=== PATIENT | female | born 1950 | race Caucasian/White ===

== ENCOUNTER 2019-06-23 17:47 | Inpatient (IN) | payer BC ==
[~2019-06-23] VITALS: Ht 157.5 cm; Wt 80.7 kg
[2019-06-23 17:47] VITALS: BP_SYST 166
--- NOTE | 2019-06-23 17:47 | NUR ---
Note bernabe in ED - 06/23/19 at 1812 by JENNIFER Placed in room 3 . Placed on school bus monitor, blood pressure machine and pulse oximeter. To gown for exam. Side rails up. Report given to SHAYE Candelaria.
--- NOTE | 2019-06-23 17:47 | NUR ---
ER Dr. Mcgovern at bedside examining patient.
--- NOTE | 2019-06-23 17:47 | NUR ---
Lance kidd in ED - 06/23/19 at 1812 by SDEDDW NILSON Mcogvern at bedside examining patient.
--- NOTE | 2019-06-23 17:47 | NUR ---
Placed in room 3 . Placed on telemetry monitor, blood pressure machine and pulse oximeter. To gown for exam. Side rails up. Report given to SHAYE Candelaria.
--- NOTE | 2019-06-23 17:47 | NUR ---
12-lead EKG done at bedside and given to Dr. Mcgovern for interpretation.
[2019-06-23] MEDS ORDERED: ALBUTEROL SULFATE 0.083% 2.5 MG/3 ML VIAL.NEB INH ONE (18:00)
[2019-06-23] MEDS ORDERED: VANCOMYCIN HCL 1,000 MG in D5W 250 ML IV ONE (18:00)
[2019-06-23] MEDS ORDERED: PIPERACILLIN/TAZO 3.38 GM in D5W 50 ML IV ONE (18:00)
[2019-06-23] MEDS ORDERED: IPRATROPIUM BROM 0.5 MG/2.5 ML VIAL.NEB (ATROVENT) INH ONE (18:00)
[2019-06-23] MEDS ORDERED: NACL 0.9% 2,500 ML IV ONE (18:00)
--- NOTE | 2019-06-23 18:00 | NUR ---
Patient AAO x 4 BIB ACLS with complaints of fever, cough with green phlegm, and increasing CP x 2 days. Per family, patient had 104 F fever 30 minutes prior to arrival. EMS administered 3 sprays of NTG and PO ASA en route to hospital. Patient reports history of RA lung (treated with chronic azithromycin therapy) and CHF. Patient is also normally on 3 L O2 via nasal cannula at home. Even chest rise and fall with respirations. Will continue to monitor.
[2019-06-23] MEDS ORDERED: LEVOFLOXACIN 500 MG/D5W 100 ML IV ONE (18:15)
[2019-06-23] MEDS ORDERED: PIPERACILLIN/TAZOBACTAM 3.375 GM/VIAL (ZOSYN) IV ONE ×2 (18:16→18:21)
[2019-06-23] MEDS ORDERED: VANCOMYCIN HCL 1000 MG/VIAL IV ONE ×2 (18:16→18:30)
[2019-06-23 18:31] LABS: BASOPHILS % (AUTO) 0.1 % (0.0-2.0); EOSINOPHILS % (AUTO) 0.2 % (0.0-4.0); HEMATOCRIT 34.2 % (36-48); HEMOGLOBIN 10.9 g/dL (12.0-16.0); LYMPHOCYTES # (AUTO) 0.4 K/uL (1.0-5.5); LYMPHOCYTES % (AUTO) 3.8 % (20.5-51.5); MEAN CORPUSCULAR HEMOGLOBIN 27 pg (27-31); MEAN CORPUSCULAR HGB CONC 32 % (32-36); MEAN CORPUSCULAR VOLUME 84 fL (79.0-98.0); MONOCYTES # (AUTO) 0.2 K/uL (0.0-1.0); MONOCYTES % (AUTO) 2.1 % (1.7-9.3); NEUTROPHILS # (AUTO) 10.2 K/uL (1.8-7.7); NEUTROPHILS % (AUTO) 93.8 % (40.0-70.0); PLATELET COUNT (AUTO) 246 K/uL (130-430); RED BLOOD CELL COUNT(AUTO) 4.09 MIL/uL (4.2-6.2); RED CELL DISTRIBUTION WIDTH 14.4 % (9.0-15.0); WHITE BLOOD COUNT (AUTO) 10.9 K/uL (4.8-10.8)
[2019-06-23 18:34] LABS: CALCIUM 8.4 mg/dL (8.4-11.0); CREATININE 0.58 mg/dL (0.55-1.30); POTASSIUM 3.8 mmol/L (3.5-5.1)
[2019-06-23 18:40] LABS: ALBUMIN 3.4 g/dL (3.4-4.8); TOTAL BILIRUBIN 0.9 mg/dL (0.0-1.0)
[2019-06-23] MEDS ORDERED: ACETAMINOPHEN 325 MG TABLET PO ONE (18:45)
[2019-06-23] MEDS ORDERED: IBUPROFEN 600 MG TABLET PO ONE (18:45)
[2019-06-23] MEDS ORDERED: LORA0.5T PO (20:12)
[2019-06-23] MEDS ORDERED: AZIT250T PO (20:12)
[2019-06-23] MEDS ORDERED: CARV25TA55 PO (20:12)
[2019-06-23] MEDS ORDERED: IBUP-1968 PO (20:12)
[2019-06-23] MEDS ORDERED: NITROGLYCERIN 0.4 MG TAB.SUBL SL ONE (20:30)
--- NOTE | 2019-06-23 20:41 | NUR ---
0.4 NTG tablet administered. Pt reports 5/10 mid chest pain.
--- NOTE | 2019-06-23 20:47 | NUR ---
PT reports relief of chest pain. Second NTG tablet held.
--- NOTE | 2019-06-23 21:40 | NUR ---
Note bernabe in ED - 06/23/19 at 2154 by TORI Patient will be admitted to care of Dr. Catalan. Admitted to Telemetry unit. Will go to room 105B. Belongings list completed. Complete and up to date summary report printed. SBAR report to be given at bedside with opportunity for questions.
--- NOTE | 2019-06-23 21:40 | NUR ---
ADMISSION NOTE Received patient from ER via gurney. Patient admitted with diagnosis of Chest pain. Patient is awake, alert, oriented X 4, 3L NC, no signs of acute respiratory distress observed. Patient oriented to hospital room, call light, toileting, pain management and safety-teach back done. Patient informed that Cesilia will be nurse and that their room number is 105. Family at bedside. Call light within reach.
[2019-06-23 21:44] VITALS: BP_SYST 116
--- NOTE | 2019-06-23 21:45 | NUR ---
INITIAL NOTES Patient is resting, no signs of acute respiratory distress observed, 3L NC. IVF running, dressings c/d/i. Family at bedside. Call light within reach, bed alarm refused after patient education of benefits and oriented to call light use. Bed at lowest position. Patient refuses bed commode and will continue to monitor.
--- NOTE | 2019-06-23 22:30 | NUR ---
Patient is resting, no signs of acute respiratory distress. Patient ambulated to the restroom, but cannot walk back and forth without oxygen, and agrees to use the commode by bedside. Will continue to monitor.
--- NOTE | 2019-06-24 | NUR ---
PAGED PAGED DR. CARRILLO FOR ORDERS, SPOKE WITH RASHEL
[2019-06-24] MEDS ORDERED: MORPHINE 4 MG/ML INJ. SYRINGE IVP PRN (00:45)
[2019-06-24] MEDS ORDERED: LORazepam 1 MG TABLET PO PRN (00:45)
--- NOTE | 2019-06-24 02:05 | NUR ---
Patient is provided with pads and bedside commode. Patient tolerates well with bedside commode. Will continue to monitor.
--- NOTE | 2019-06-24 03:10 | NUR ---
Patient is resting, IVF running, dressings c/d/i. No signs of respiratory distress. warm blankets and nasal canula extension provided. Will continue to monitor.
--- NOTE | 2019-06-24 03:30 | NUR ---
DR. OLIVEIRA AT BEDSIDE, ASSESSING PATIENT. DR. OLIVEIRA WILL PUT IN NEW ORDERS.
[2019-06-24 03:45] VITALS: BP_SYST 60
--- NOTE | 2019-06-24 03:46 | NUR ---
Consultation Paged Reason for Consultation: Chest Pain Was consult called: Y Person who was notified: Sindhu Consulting Physician: Dr. Scott Ordering Physician: Dr. Ngo
[2019-06-24] MEDS: ONDANSETRON HCL 4 MG/2 ML VIAL IVP PRN ×2 (03:57→08:08)
[2019-06-24] MEDS: MORPHINE 2 MG/ML INJ. SYRINGE IVP PRN (03:58)
--- NOTE | 2019-06-24 04:30 | NUR ---
Provided patient with PRN pain medication and zofran, patient states that 10 minutes before, she felt a discomfort behind her throat making it feel like it is hard to breathe. Patient has unlabored breathing, 3L Nasal Canula, repositioned patient and patient states that she is feeling better, but will call respiratory therapist. Will continue to monitor.
--- NOTE | 2019-06-24 06:48 | NUR ---
CLOSING NOTE Patient is resting in bed, awake, no signs of acute distress, IVF running, dressings c/d/i. Safety and fall precautions in place, bed locked and in lowest position, bed alarm off, after patient education provided and patient understanding of risks of no bed alarm, call light within reach. All needs met throughout shift. Xray tissue recovery technician took XR at bedside. Will endorse care to oncoming shift. Addendum: 06/24/19 at 0649 by Cesilia Merrill RN WRONG PATIENT- PLEASE DISREGARD
--- NOTE | 2019-06-24 06:49 | NUR ---
CLOSING NOTE Patient is resting in bed, awake, no signs of acute distress, 3L NC. Family at bedside. Safety and fall precautions in place, bed locked and in lowest position, bed alarm off, after patient education provided and patient understanding of risks of no bed alarm, call light within reach. All needs met throughout shift. Will endorse care to oncoming shift.
[2019-06-24 07:39] LABS: BASOPHILS % (AUTO) 0.1 % (0.0-2.0); EOSINOPHILS % (AUTO) 0.2 % (0.0-4.0); HEMOGLOBIN 9.9 g/dL (12.0-16.0); LYMPHOCYTES # (AUTO) 0.8 K/uL (1.0-5.5); LYMPHOCYTES % (AUTO) 9.8 % (20.5-51.5); MEAN CORPUSCULAR HEMOGLOBIN 26 pg (27-31); MEAN CORPUSCULAR HGB CONC 31 % (32-36); MEAN CORPUSCULAR VOLUME 84 fL (79.0-98.0); MONOCYTES # (AUTO) 0.2 K/uL (0.0-1.0); MONOCYTES % (AUTO) 2.3 % (1.7-9.3); NEUTROPHILS # (AUTO) 7.5 K/uL (1.8-7.7); NEUTROPHILS % (AUTO) 87.6 % (40.0-70.0); PLATELET COUNT (AUTO) 233 K/uL (130-430); RED CELL DISTRIBUTION WIDTH 14.4 % (9.0-15.0); WHITE BLOOD COUNT (AUTO) 8.6 K/uL (4.8-10.8)
--- NOTE | 2019-06-24 08:00 | NUR ---
received awake and alert and oriented vss.tele st.c/o headache pain and nausea and prn meds to be given.resp even and unlabored and 02 at 3l nc.continue to monitor and call nayak in place.
[2019-06-24] MEDS: ACETAMINOPHEN 325 MG TABLET PO PRN ×2 (08:09→23:06)
[2019-06-24] MEDS: ALBUTEROL SULFATE 0.083% 2.5 MG/3 ML VIAL.NEB INH PRN (08:29)
[2019-06-24] MEDS: IPRATROPIUM BROM 0.5 MG/2.5 ML VIAL.NEB (ATROVENT) INH PRN (08:29)
[2019-06-24 08:46] LABS: ALANINE AMINOTRANSFERASE 16 U/L (12-78); ALBUMIN 2.7 g/dL (3.4-4.8); ASPARTATE AMINOTRANSFERASE 15 U/L (10-37); CALCIUM 7.9 mg/dL (8.4-11.0); CHLORIDE 103 mmol/L (98-107); CREATININE 0.47 mg/dL (0.55-1.30); GFR AFRICAN AMERICAN 168 mL/min (>90); GLUCOSE 94 mg/dL (70-99); POTASSIUM 3.7 mmol/L (3.5-5.1); SODIUM SERUM 138 mmol/L (136-145); TOTAL BILIRUBIN 0.7 mg/dL (0.0-1.0); UREA NITROGEN, BLOOD 9 mg/dL (8-21)
[2019-06-24 08:47] LABS: ANION GAP < 3 (5-15)
[2019-06-24] MEDS ORDERED: CARVEDILOL 25 MG TABLET (COREG) PO SCH (09:00)
[2019-06-24] MEDS ORDERED: CARVEDILOL 12.5 MG TABLET (COREG) PO ONE (09:15)
[2019-06-24] MEDS: AZITHROMYCIN 250 MG TABLET PO SCH (09:16)
[2019-06-24] MEDS: ASPIRIN 81 MG TAB.CHEW PO SCH (09:16)
[2019-06-24 09:42] LABS: CHOLESTEROL 164 mg/dL (<200); HDL CHOLESTEROL 62 mg/dL (>55); LDL CHOLESTEROL 80 mg/dL (<100); TRIGLYCERIDES 62 mg/dL (30-150)
[2019-06-24] MEDS ORDERED: LORazepam 2 MG/ML VIAL IVP ONE (10:45)
[2019-06-24 11:16] VITALS: BP_SYST 97
[2019-06-24] MEDS: IPRATROPIUM/ALBUTEROL SULFATE 3 ML AMPUL.NEB (DUONEB) INH SCH ×4 (11:20→23:00)
[2019-06-24] MEDS ORDERED: ENOXAPARIN SODIUM 40 MG/0.4 ML SYRINGE SUBCUT ONE (11:30)
--- NOTE | 2019-06-24 12:00 | NUR ---
angiogram ordered and consent signed.given ativan as premed however when they arrived to pick up attendant she had eaten part of lunch and so postponed to 1400.tele [address] and 02 3lnc iv sl patent lac.continue to monitor call nayak in place
[2019-06-24] MEDS ORDERED: IOHEXOL 350 mgI/mL, 150 ML INFUS..BTL IV ONE (12:13)
[2019-06-24 15:44] VITALS: BP_SYST 92
--- NOTE | 2019-06-24 16:43 | NUR ---
bp has been lower since given ativan dose for pre test and frequent monitoring of vs being done ever since..ct made aware of this and will hold off until bp becomes more stable.will continue to monitor. pt with no c/o discomfort or dizziness up to bsc with assist and family members at bedside.
[2019-06-24] MEDS: VANCOMYCIN HCL 1,000 MG in NS 250 ML IV SCH (18:10)
--- NOTE | 2019-06-24 18:51 | NUR ---
TAKEN AND COMPLETED ANGIOGRAM AND BACK TO ROOM NO C/O DISCOMFORTIV ABX INFUSING.BP REMAINS LOWER 80/70 AND WILL CONTINUE TO MONITOR AND ASYMPTOMATIC.FAMILY AT BEDSIDE.CALL RESENDEZ IN PLACE.
--- NOTE | 2019-06-24 19:22 | NUR ---
OPENING NOTES Patient is resting, no signs of acute respiratory distress observed, 3L NC. Family at bedside. Call light within reach, bed alarm refused after patient education of benefits and oriented to call light use. Bed at lowest position. Will continue to monitor.
--- NOTE | 2019-06-24 19:30 | NUR ---
CT CHEST COMPLETED AND PT IN NO C/O DISCOMFORT VSS REPORT TO REFUELER RN GIVEN
[2019-06-24 20:00] VITALS: BP_SYST 112
[2019-06-24] MEDS: CARVEDILOL 12.5 MG TABLET (COREG) PO SCH (21:00)
--- NOTE | 2019-06-24 22:14 | NUR ---
Patient is resting, no signs of acute respiratory distress observed. Patient has productive cough. IV site assessed, patent, dressing c/d/i. Will continue to monitor.
[2019-06-24 23:45] VITALS: BP_SYST 98
--- NOTE | 2019-06-25 00:22 | NUR ---
Patient is resting, no signs of distress observed. Call light within reach, bed alarm on, bed at lowest position. Will continue to monitor.
[2019-06-25] MEDS: LEVOFLOXACIN 250 MG/D5W 50 ML IV SCH ×2 (01:37→21:40)
--- NOTE | 2019-06-25 02:31 | NUR ---
Patient's IV came out when patient ambulated to use the commode. 3 attempts made for IV access, but IV access was not obtained. Will try again after patient has time to rest as patient requests not to be poked anymore
[2019-06-25] MEDS: IPRATROPIUM/ALBUTEROL SULFATE 3 ML AMPUL.NEB (DUONEB) INH SCH ×5 (03:00→19:26)
--- NOTE | 2019-06-25 04:11 | NUR ---
Patient is resting, feeling agitated and wants something for pain. Will provide morphine and zofran, will monitor blood pressure. Blood pressure is within normal limits before providing. Will continue to monitor.
--- NOTE | 2019-06-25 05:03 | NUR ---
IV RE-INSERTION: Restarted on Right forearm, 22g. Successful after 2 attempts. Will observe for any signs of infiltration.
[2019-06-25] MEDS: ONDANSETRON HCL 4 MG/2 ML VIAL IVP PRN ×2 (05:29→20:14)
[2019-06-25] MEDS: MORPHINE 2 MG/ML INJ. SYRINGE IVP PRN ×2 (05:30→20:15)
--- NOTE | 2019-06-25 07:03 | NUR ---
CLOSING NOTE Patient is resting in bed, 3L NC, no signs of acute respiratory distress. Family at bedside. Safety and fall precautions in place, bed locked and in lowest position, bed alarm off, after patient education provided and patient understanding of risks of no bed alarm, call light within reach. All needs met throughout shift. Will endorse care to oncoming shift.
--- NOTE | 2019-06-25 07:05 | NUR ---
OPENING NOTES PT AWAKE, ALERT, AND ORIENTED. FAMILY AT BEDSIDE. NO ACUTE DISTRESS NOTED. NONLABORED BREATHING NOTED. NASAL CANNULA INTACT AND PATENT, RUNNING OXYGEN ORDERED. TOLERATING WELL. IV INTACT AND PATENT, NO SIGNS OF INFILTRATION. ALL NEEDS MET. CALL LIGHT IN REACH. FALL AND ASPIRATION PRECAUTIONS IN PLACE. BED IN LOWEST AND LOCKED POSITION. CONTINUE TO MONITOR.
[2019-06-25 07:08] LABS: BASOPHILS % (AUTO) 0.2 % (0.0-2.0); EOSINOPHILS # (AUTO) 0.1 K/uL (0.0-0.4); EOSINOPHILS % (AUTO) 2.2 % (0.0-4.0); HEMATOCRIT 28.6 % (36-48); LYMPHOCYTES # (AUTO) 0.5 K/uL (1.0-5.5); LYMPHOCYTES % (AUTO) 10.9 % (20.5-51.5); MEAN CORPUSCULAR HEMOGLOBIN 27 pg (27-31); MEAN CORPUSCULAR HGB CONC 32 % (32-36); MEAN CORPUSCULAR VOLUME 84 fL (79.0-98.0); MONOCYTES # (AUTO) 0.2 K/uL (0.0-1.0); MONOCYTES % (AUTO) 3.2 % (1.7-9.3); NEUTROPHILS # (AUTO) 4.2 K/uL (1.8-7.7); NEUTROPHILS % (AUTO) 83.5 % (40.0-70.0); PLATELET COUNT (AUTO) 213 K/uL (130-430); RED BLOOD CELL COUNT(AUTO) 3.39 MIL/uL (4.2-6.2); RED CELL DISTRIBUTION WIDTH 14.3 % (9.0-15.0)
[2019-06-25 07:45] VITALS: BP_SYST 95
[2019-06-25] MEDS: CARVEDILOL 12.5 MG TABLET (COREG) PO SCH ×2 (08:11→20:13)
--- NOTE | 2019-06-25 08:30 | NUR ---
SEEN BY DR. BERRIOS AT BEDSIDE.
[2019-06-25] MEDS: ASPIRIN 81 MG TAB.CHEW PO SCH (08:41)
[2019-06-25] MEDS: AZITHROMYCIN 250 MG TABLET PO SCH (08:41)
--- NOTE | 2019-06-25 08:41 | NUR ---
ROUTINE MEDS ROUTINE MEDS ADMINISTERED ORDERED PER MD, EDUCATION DONE, TOLERATED WELL. FAMILY AT BEDSIDE. NO ACUTE DISTRESS NOTED. ALL NEEDS MET. CALL LIGHT IN REACH. CONTINUE TO MONITOR.
[2019-06-25] MEDS: ENOXAPARIN SODIUM 40 MG/0.4 ML SYRINGE SUBCUT SCH (08:42)
--- NOTE | 2019-06-25 09:56 | NUR ---
Nutrition Update Uriel Scale 18 noted. Pt admitted for PNA Diet: Cardiac BMI: 33.0 kg/m2 RD to follow per nutrition care standards.
--- NOTE | 2019-06-25 10:45 | NUR ---
ROUNDS PATIENT AWAKE, ALERT, AND ORIENTED. NO ACUTE DISTRESS NOTED. FAMILY AT BEDSIDE. ALL NEEDS MET. SONG LIGHT IN REACH. CONTINUE TO MONITOR.
[2019-06-25 12:29] VITALS: BP_SYST 107
--- NOTE | 2019-06-25 12:30 | NUR ---
ROUNDS PT AWAKE, ALERT, AND ORIENTED IN BED. NONLABORED BREATHING NOTED. NO ACUTE DISTRESS NOTED. FAMILY AT BEDSIDE. ALL NEEDS MET. CALL LIGHT IN REACH. CONTINUE TO MONITOR.
--- NOTE | 2019-06-25 14:19 | NUR ---
ASSISTED PT TO BATHROOM NO ACUTE DISTRESS NOTED. FAMILY AT BEDSIDE. ALL NEEDS MET. CALL LIGHT IN REACH. CONTINUE TO MONITOR.
[2019-06-25] MEDS: ACETAMINOPHEN 325 MG TABLET PO PRN (15:28)
--- NOTE | 2019-06-25 15:28 | NUR ---
PRN MEDS PRN MEDS ADMINISTERED ORDERED PER MD, EDUCATION GIVEN, TOLERATED WELL. NO ACUTE DISTRESS NOTED. ALL NEEDS MET. CALL LIGHT IN REACH. CONTINUE TO MONITOR. Addendum: 06/25/19 at 1640 by Lotus Pham RN PER SUPPLY COORDINATOR, PT HAD TEMP OF 100.8. RE-ASSESSED PT, VERIFIED THAT PT HAD TEMP OF 100.8. TYLENOL GIVEN ORDERED. TOLERATED WELL. WILL RE-ASSESS.
--- NOTE | 2019-06-25 16:28 | NUR ---
REASSESSED TEMP 97.7. NO ACUTE DISTRESS NOTED. FAMILY AT BEDSIDE. ALL NEEDS MET. CALL LIGHT IN REACH. CONTINUE TO MONITOR.
[2019-06-25 16:30] VITALS: BP_SYST 129
[2019-06-25] MEDS: VANCOMYCIN HCL 1,000 MG in NS 250 ML IV SCH (18:08)
--- NOTE | 2019-06-25 18:08 | NUR ---
ROUTINE MEDS ROUTINE MEDS ADMINISTERED ORDERED, EDUCATION GIVEN, TOLERATED WELL. FAMILY AT BEDSIDE. NO ACUTE DISTRESS NOTED. ALL NEEDS MET. CALL LIGHT IN REACH. CONTINUE TO MONITOR.
--- NOTE | 2019-06-25 18:45 | NUR ---
CLOSING NOTES PT AWAKE, ALERT, AND ORIENTED. FAMILY AT BEDSIDE. NASAL CANNULA INTACT AND PATENT, OXYGEN RUNNING ORDERED, TOLERATING WELL. BED LOCKED AND IN LOWEST POSITION. ALL NEEDS MET. CALL LIGHT IN REACH. WILL ENDORSE TO NOC NURSE.
--- NOTE | 2019-06-25 19:37 | NUR ---
Opening Note Received report from carissa RN, patient is resting in bed, A/Ox4, no signs of acute distress, family at bedside, even and unlabored breathing on 3L NC, IV to right FA infusing fluids per MD order, patent/benign. Safety and fall precautions in place, patient refused bed alarm despite education, bed locked and in lowest position, bed close to nursing station, two side rails up, call light with patient, will continue to monitor.
[2019-06-25 20:00] VITALS: BP_SYST 108
--- NOTE | 2019-06-25 20:13 | NUR ---
Pain/Nausea Patient complains of generalized pain 6/10, nausea and having the urge to vomit. PRN morphine indicated for moderate pain and Zofran indicated for nausea/vomiting. Educated patient on medications uses and potential side effects. Patient able to verbalize understanding. Administered medications per MD order. Patient tolerated well. Safety and fall precautions in place, call light with patient, will continue to monitor.
--- NOTE | 2019-06-25 22:10 | NUR ---
RN Rounds Patient is resting in bed, no signs of acute distress, family at bedside, tolerating 3L NC, IV to right FA is saline locked, patent/benign. Safety and fall precautions in place, bed locked and in lowest position, bed close to nursing station, two side rails up, call light with patient, will continue to monitor.
[2019-06-26 00:21] VITALS: BP_SYST 118
[2019-06-26] MEDS: METOCLOPRAMIDE HCL 10 MG/2 ML VIAL IVP PRN (00:38)
[2019-06-26] MEDS: ACETAMINOPHEN 325 MG TABLET PO PRN (00:39)
[2019-06-26 00:49] VITALS: BP_SYST 150
[2019-06-26] MEDS: MORPHINE 2 MG/ML INJ. SYRINGE IVP PRN (00:58)
--- NOTE | 2019-06-26 00:58 | NUR ---
Pain/Nausea Patient complains of generalized 6/10 pain and nausea. PRN morphine indicated for moderate pain and Reglan indicated if Zofran is ineffective. Admitting SHAYE Cameron educated patient on medications uses and potential side effects. Patient able to verbalize understanding. Admitting SHAYE Cameron administered medications per MD order. Patient tolerated well. Safety and fall precautions in place, call light with patient, will continue to monitor.
--- NOTE | 2019-06-26 02:31 | NUR ---
RN Rounds Patient is resting in bed, no signs of acute distress, family at bedside, tolerating 3L NC, IV to right FA is saline locked, patent/benign. Patient verbalizes she feels like she is having a fever. Assessed patient's temperature is 98.0. Provided comfort measures. Safety and fall precautions in place, bed locked and in lowest position, bed close to nursing station, two side rails up, call light with patient, will continue to monitor.
[2019-06-26] MEDS: IPRATROPIUM/ALBUTEROL SULFATE 3 ML AMPUL.NEB (DUONEB) INH SCH ×7 (02:44→23:00)
--- NOTE | 2019-06-26 04:32 | NUR ---
RN Rounds Patient is sitting up in bed, no signs of acute distress, verbalizes she feels anxious but does not want to take her PRN Ativan, family at bedside, tolerating 3L NC, IV to right FA is saline locked, patent/benign. Safety and fall precautions in place, bed locked and in lowest position, bed close to nursing station, two side rails up, call light with patient, will continue to monitor.
[2019-06-26] MEDS: ONDANSETRON HCL 4 MG/2 ML VIAL IVP PRN (06:36)
--- NOTE | 2019-06-26 06:36 | NUR ---
Nausea Patient complains of nausea and having the urge to vomit. No emesis noted. PRN Zofran indicated for nausea/vomiting. Educated patient on medications uses and potential side effects. Patient able to verbalize understanding. Administered medications per MD order. Patient tolerated well. Safety and fall precautions in place, call light with patient, will continue to monitor.
--- NOTE | 2019-06-26 06:43 | NUR ---
Closing Note Patient is sitting up in bed, no signs of acute distress, family at bedside, even and unlabored breathing on 3L NC, IV to right FA is saline locked, patent/benign. Safety and fall precautions in place, patient refused bed alarm despite education, bed locked and in lowest position, bed close to nursing station, two side rails up, call light with patient, will endorse care to dayshift RN.
[2019-06-26 07:15] LABS: BASOPHILS % (AUTO) 0.2 % (0.0-2.0); EOSINOPHILS # (AUTO) 0.1 K/uL (0.0-0.4); EOSINOPHILS % (AUTO) 1.8 % (0.0-4.0); HEMATOCRIT 31.4 % (36-48); HEMOGLOBIN 9.7 g/dL (12.0-16.0); LYMPHOCYTES # (AUTO) 0.6 K/uL (1.0-5.5); LYMPHOCYTES % (AUTO) 9.5 % (20.5-51.5); MEAN CORPUSCULAR HEMOGLOBIN 26 pg (27-31); MEAN CORPUSCULAR HGB CONC 31 % (32-36); MEAN CORPUSCULAR VOLUME 85 fL (79.0-98.0); MONOCYTES # (AUTO) 0.3 K/uL (0.0-1.0); MONOCYTES % (AUTO) 4.6 % (1.7-9.3); NEUTROPHILS # (AUTO) 5.1 K/uL (1.8-7.7); NEUTROPHILS % (AUTO) 83.9 % (40.0-70.0); PLATELET COUNT (AUTO) 282 K/uL (130-430); RED BLOOD CELL COUNT(AUTO) 3.71 MIL/uL (4.2-6.2); RED CELL DISTRIBUTION WIDTH 14.5 % (9.0-15.0); WHITE BLOOD COUNT (AUTO) 6.1 K/uL (4.8-10.8)
[2019-06-26 07:49] LABS: CALCIUM 8.7 mg/dL (8.4-11.0); CREATININE 0.51 mg/dL (0.55-1.30); GLUCOSE 109 mg/dL (70-99); UREA NITROGEN, BLOOD 7 mg/dL (8-21)
--- NOTE | 2019-06-26 07:50 | NUR ---
AM ASSESSMENT. PT SITTING UP BY THE EDGE OF HER BED, TALKING OVER THE PHONE, WITH COMPLAINTS OF DISCOMFORTS TO HER ARMS, HX RHEUMATOID ARTHRITIS, STATED THAT SHE WOULD LIKE TO TAKE SOME MOTRIN AND IF NOT GIVEN, SHE WOULD ASK HER FAMILY TO BRING HER OWN MEDS IN, DR BERRIOS JUST WALKING IN TO SEE PATIENT AND HEARD HER.
[2019-06-26 07:58] LABS: CHLORIDE 97 mmol/L (98-107); POTASSIUM 3.9 mmol/L (3.5-5.1); SODIUM SERUM 132 mmol/L (136-145)
[2019-06-26 08:00] VITALS: BP_SYST 123
[2019-06-26 08:04] LABS: GFR AFRICAN AMERICAN 153 mL/min (>90)
[2019-06-26 08:05] LABS: ANION GAP < 3 (5-15)
[2019-06-26] MEDS ORDERED: MILK OF MAGNESIA 30 ML UDC PO ONE (09:00)
[2019-06-26] MEDS ORDERED: IBUPROFEN 400 MG TABLET PO ONE (09:00)
[2019-06-26] MEDS ORDERED: DOCUSATE SODIUM 100 MG CAPSULE PO ONE (09:00)
[2019-06-26] MEDS: ENOXAPARIN SODIUM 40 MG/0.4 ML SYRINGE SUBCUT SCH (09:44)
[2019-06-26] MEDS: ASPIRIN 81 MG TAB.CHEW PO SCH (09:48)
[2019-06-26] MEDS: CARVEDILOL 12.5 MG TABLET (COREG) PO SCH ×2 (09:48→21:26)
[2019-06-26] MEDS: LORazepam 1 MG TABLET PO PRN (09:49)
--- NOTE | 2019-06-26 09:49 | NUR ---
MEDS. PT MEDICATED WITH MOTRIN AND ALL MEDS DUE, OFFERED ATIVAN FOR ANXIETY, SHE WILLINGLY TOOK HALF TAB, GRAND DAUGHTER IN THE ROOM WATCHING HER.
--- NOTE | 2019-06-26 10:49 | NUR ---
FAMILY. PT HAVING A HAPPY CONVERSATION WITH HER FAMILY AT THIS HOUR.
[2019-06-26 11:24] VITALS: BP_SYST 120
--- NOTE | 2019-06-26 12:15 | NUR ---
HYGIENE. PT INCONTINENT OF BLADDER, CLEANSED PERINEAL AREA WITH SOAPY TOWEL, RINSED SKIN AND PAT DRY. ALLOWED PATIENT TO USE HER CLEAN UNDERWEAR WITH ABSORBENT FEMININE PAD WHICH HER FAMILY BROUGHT IN.
[2019-06-26 15:30] VITALS: BP_SYST 114
[2019-06-26] MEDS: IBUPROFEN 400 MG TABLET PO SCH (17:42)
--- NOTE | 2019-06-26 17:42 | NUR ---
MEDS. PT HAVING HER DINNER AT THIS TIME, MOTRIN 400 MG GIVEN, PT COMPLAINING OF GENERALIZED BODY DISCOMFORT, 8/10 SCALE.
--- NOTE | 2019-06-26 19:42 | NUR ---
Opening Note Received report from dayshift RN, patient is sitting in bed, awake, A/Ox4, no signs of acute distress, family at bedside, even and unlabored breathing on 3L NC, IV to right FA is saline locked, patent/benign, complains of 3/10 pain but verbalized it is tolerable. Safety and fall precautions in place, patient refused bed alarm despite education, bed locked and in lowest position, bed close to nursing station, two side rails up, call light with patient, will continue to monitor.
[2019-06-26 20:00] VITALS: BP_SYST 116
[2019-06-26] MEDS: DOCUSATE SODIUM 100 MG CAPSULE PO SCH ×2 (21:00→21:11)
[2019-06-26] MEDS: LEVOFLOXACIN 250 MG/D5W 50 ML IV SCH (21:11)
--- NOTE | 2019-06-26 22:40 | NUR ---
RN Rounds Patient is resting in bed, eyes closed, no signs of acute distress, family at bedside, tolerating 3L NC, IV to right FA is saline locked, patent/benign. Safety and fall precautions in place, bed locked and in lowest position, bed close to nursing station, two side rails up, call light with patient, will continue to monitor.
[2019-06-27] VITALS (7 sets, daily range): BP systolic 107–132
[2019-06-27] MEDS: LORazepam 1 MG TABLET PO PRN ×2 (00:03→21:00)
--- NOTE | 2019-06-27 00:03 | NUR ---
Anxiety Patient complains of having anxiety and requests PRN Ativan. PRN Ativan indicated for anxiety. Educated patient on medications uses and potential side effects. Patient able to verbalize understanding. Administered medications per MD order. Patient tolerated well. Safety and fall precautions in place, call light with patient, will continue to monitor.
--- NOTE | 2019-06-27 02:01 | NUR ---
RN Rounds Assisted patient to bedside commode and back to bed safely. Patient had a small BM and reported no difficulty. Patient is cleaned, dry, and repositioned. Safety and fall precautions in place, call light with patient, will continue to monitor.
--- NOTE | 2019-06-27 04:08 | NUR ---
RN Rounds/PRN Breathing Tx Pt is sitting up in bed, pt verbalizes that she is having difficulty breathing and would like a breathing tx at this time, notified RT, assessed pt's O2 sat is 97% on 3L NC, family at bedside, IV to right FA is saline locked. Safety and fall precautions in place, bed locked and in lowest position, bed close to nursing station, two side rails up, call light with patient, will stay with pt until RT arrives.
[2019-06-27] MEDS: IPRATROPIUM/ALBUTEROL SULFATE 3 ML AMPUL.NEB (DUONEB) INH SCH ×7 (04:13→23:20)
[2019-06-27] MEDS: ONDANSETRON HCL 4 MG/2 ML VIAL IVP PRN ×2 (06:22→19:59)
--- NOTE | 2019-06-27 06:22 | NUR ---
Nausea Patient complains of nausea and felling like she is going to vomit. No emesis noted. PRN Zofran indicated for nausea. Educated patient on medication uses and potential side effects. Patient able to verbalize understanding. Administered medication per MD order. Patient tolerated well. Safety and fall precautions in place, call light with patient, will continue to monitor.
--- NOTE | 2019-06-27 06:30 | NUR ---
Closing Note Patient is sitting in bed, eyes closed, no signs of acute distress, family at bedside, even and unlabored breathing on 3L NC, IV to right FA is saline locked, patent/benign, complains of nausea, medicated with PRN Zofran per MD order. Safety and fall precautions in place, patient refused bed alarm despite education, bed locked and in lowest position, bed close to nursing station, two side rails up, call light with patient, will endorse care to dayshift RN.
--- NOTE | 2019-06-27 07:20 | NUR ---
INITIAL NOTE PT SITTING UP IN BED, ON 4L NC TOLERATING WELL. IV SALINE LOCKED PT COMPLAINING OF NAUSEA. 1X DOSE OF ZOFRAN WAS GIVEN TO PT BY BASEBALL PLAYER RN. FAMILY AT BEDSIDE. CALL LIGHT WITHIN REACH, BED IN LOW AND LOCKED POSITION WITH BED ALARM ON.
[2019-06-27] MEDS: METOCLOPRAMIDE HCL 10 MG/2 ML VIAL IVP PRN (07:59)
[2019-06-27] MEDS: DOCUSATE SODIUM 100 MG CAPSULE PO SCH ×2 (08:00→21:00)
[2019-06-27] MEDS: ASPIRIN 81 MG TAB.CHEW PO SCH (08:00)
[2019-06-27] MEDS: IBUPROFEN 400 MG TABLET PO SCH ×2 (08:00→17:06)
[2019-06-27] MEDS: CARVEDILOL 12.5 MG TABLET (COREG) PO SCH ×2 (08:01→21:00)
[2019-06-27] MEDS: ENOXAPARIN SODIUM 40 MG/0.4 ML SYRINGE SUBCUT SCH (08:04)
--- NOTE | 2019-06-27 09:25 | NUR ---
RN ROUNDS PT AWAKE, REPOSITIONED FOR COMFORT, PLACED PT ON 4L NC.
[2019-06-27] MEDS: ALBUTEROL SULFATE 0.083% 2.5 MG/3 ML VIAL.NEB INH PRN (10:00)
[2019-06-27] MEDS: IPRATROPIUM BROM 0.5 MG/2.5 ML VIAL.NEB (ATROVENT) INH PRN (10:00)
--- NOTE | 2019-06-27 10:15 | NUR ---
DR. CHARLENE BEYER AT BEDSIDE EXAMINING PT. INFORMED MD THAT PT HAS BEEN WHEEZING EVEN AFTER RECEIVING BREATHING TREATMENT. MD TO ORDER SOLU-MEDROL 1X. VERIFIED ORDER WITH READ BACK.
[2019-06-27] MEDS ORDERED: BUDESONIDE 0.5 MG/2 ML AMPUL.NEB INH ONE (11:00)
[2019-06-27] MEDS ORDERED: methylPREDNISolone SOD SUCC 40 MG/ML VIAL IVP ONE (11:00)
--- NOTE | 2019-06-27 11:30 | NUR ---
RN ROUNDS PT AWAKE, SPEAKING WITH FAMILY AT BEDSIDE. PT REMAINS ON 4L NC, TOLERATING WELL. WILL CONTINUE TO MONITOR.
--- NOTE | 2019-06-27 13:30 | NUR ---
RN ROUNDS NO CHANGE IN ASSESSMENT. FAMILY REMAINS AT BEDSIDE SPEAKING WITH PT.
--- NOTE | 2019-06-27 14:22 | NUR ---
Dietitian Recommendations * Recommend continuing cardiac diet * Encourage increase PO intakes * Consider ONS if PO intakes do not improve LP, RD Please refer to Nutrition Assessment for details. Addendum: 06/27/19 at [address] Amended: Links added.
--- NOTE | 2019-06-27 15:30 | NUR ---
RN ROUNDS ASSISTED PT WITH BATHROOM HYGIENE. OFFERED MOIST TOWELETTES AND LOTION. PT HAD BOWEL MOVEMENT, ASSISTED PT BACK INTO BED.
--- NOTE | 2019-06-27 16:15 | NUR ---
DR. CHERY/RN ROUNDS MD AT BEDSIDE EXAMINING PT. PT HAS MOIST COUGH, WITH NO WHEEZING. MD TO PUT IN NEW ORDERS.
[2019-06-27] MEDS ORDERED: IPRATROPIUM/ALBUTEROL SULFATE 3 ML AMPUL.NEB (DUONEB) INH PRN (16:45)
--- NOTE | 2019-06-27 17:01 | NUR ---
ID consult called: for Dr. Alva, regarding pna, ordered by Dr. Arboleda, spoke with Chelsie.
--- NOTE | 2019-06-27 18:35 | NUR ---
CLOSING NOTE PT RESTING IN BED. PT REMAINS ON 4L NC, TOLERATING WELL. IV SALINE LOCKED. CALL LIGHT WITHIN REACH, BED IN LOW AND LOCKED POSITION WITH BED ALARM ON. ALL NEEDS MET THROUGHOUT SHIFT. WILL CONTINUE TO MONITOR. UNTIL PT CARE IS ENDORSED TO MINER PLACER RN.
--- NOTE | 2019-06-27 19:25 | NUR ---
CHANGE OF SHIFT: pt. sleeping when checked, no distress noted at this time. call light at bedside. will reassess later.
--- NOTE | 2019-06-27 19:43 | NUR ---
NOTES: pt. woke up calling for her room mate but also c/o headache and nauseated. pt. was just given Motrin before the shift, told her will check. pt. dangling at the edge of the bed. call light within reach.
--- NOTE | 2019-06-27 20:00 | NUR ---
NOTES: pt. medicated with IV Zofran for c/o nausea, no vomiting, offered Tylenol or Morphine for her headache but she does not want it,was just given Motrin before change of shift and ordered BID. pt. on O2 @ 3l/nc, occ. bouts of productive cough. IV lock on rt. arm. pt. able to stand up and move all extremities but with arthritic hands. cardiac pattern on sinus rhythm, rate on the high 90's.call light within reach.pt. instructed to call for help and verbalized understanding.
[2019-06-27] MEDS: BUDESONIDE 0.5 MG/2 ML AMPUL.NEB INH SCH (20:11)
[2019-06-27] MEDS: LEVOFLOXACIN 250 MG/D5W 50 ML IV SCH (20:59)
[2019-06-27] MEDS ORDERED: PREDNISONE 20 MG TABLET PO SCH (21:00)
--- NOTE | 2019-06-27 21:00 | NUR ---
NOTES: schedule medications given including IV antibiotic. remain sitting at the edge of the bed. call light at bedside.
--- NOTE | 2019-06-27 21:59 | NUR ---
NOTES: pt. got up to use BSC and voided .IV tubing still connected for IV antibiotic. pt. daughter at bedside, staying for the night. pt. needs attended. still with occ. bouts of productive cough.
[2019-06-27] MEDS: ACETAMINOPHEN 325 MG TABLET PO PRN (23:24)
--- NOTE | 2019-06-27 23:30 | NUR ---
NOTES: pt. still awake, just had another breathing treatment. c/o headache, Tylenol po given, crushed with apple sauce, offered ice pack but refused. pt. sitting at he edge of the bed. call light at bedside.
--- NOTE | 2019-06-28 00:30 | NUR ---
NOTES: pt. resting , noted some relief. condition observed.
[2019-06-28] MEDS: METOCLOPRAMIDE HCL 10 MG/2 ML VIAL IVP PRN ×3 (02:34→16:09)
[2019-06-28] MEDS: IPRATROPIUM/ALBUTEROL SULFATE 3 ML AMPUL.NEB (DUONEB) INH SCH ×2 (02:35→07:00)
--- NOTE | 2019-06-28 02:41 | NUR ---
NOTES: pt. awakened and saying she still have the headache 10/10, no other med to give and agree to have Morphine and nauseated also, IV Reglan given. BSC used earlier. pt. needs attended. instructed to lay down in bed. continuous O2 , refused breathing treatment due.
--- NOTE | 2019-06-28 04:00 | NUR ---
NOTES: pt. checked and finally went to sleep. condition observed.
--- NOTE | 2019-06-28 05:50 | NUR ---
NOTES: pt. checked , remain asleep with daughter at bedside on a recliner. no distress.
--- NOTE | 2019-06-28 06:35 | NUR ---
CLOSING NOTES; pt. remain asleep at his time, no distress. continuous O2. IV lock on rt. forearm. call light at bedside. for further care and assistance. will endorse to day shift.
[2019-06-28] MEDS: BUDESONIDE 0.5 MG/2 ML AMPUL.NEB INH SCH ×2 (07:00→19:11)
--- NOTE | 2019-06-28 07:25 | NUR ---
INITIAL NOTE PT SITTING AT EDGE OF BED. PT ON 3L NC, TOLERATING WELL. PT COMPLAINING OF MILD NAUSEA. PER PT ZOFRAN WAS GIVEN BUT DOES NOT SEEM TO BE WORKING. PT WOULD LIKE REGLAN ADMINISTERED WITH MORNING MEDICATIONS. DAUGHTER AT BEDSIDE. CALL LIGHT WITHIN REACH, BED IN LOW AND LOCKED POSITION WITH BED ALARM ON.
--- NOTE | 2019-06-28 07:48 | NUR ---
NAUSEA/DRY HEAVING GAVE PT EMESIS BAG. PT DRY HEAVING. EDUCATED PT ON USES AND SIDE EFFECTS OF REGLAN, PT VERBALIZED UNDERSTANDING. PRN REGLAN ADMINISTERED. WILL CONTINUE TO MONITOR.
[2019-06-28 08:00] VITALS: BP_SYST 144
[2019-06-28] MEDS: ASPIRIN 81 MG TAB.CHEW PO SCH (08:04)
[2019-06-28] MEDS: LORazepam 1 MG TABLET PO PRN ×2 (08:04→13:36)
[2019-06-28] MEDS: IBUPROFEN 400 MG TABLET PO SCH ×2 (08:04→17:05)
[2019-06-28] MEDS: DOCUSATE SODIUM 100 MG CAPSULE PO SCH ×2 (08:04→20:25)
[2019-06-28] MEDS: CARVEDILOL 12.5 MG TABLET (COREG) PO SCH ×2 (08:05→20:25)
[2019-06-28] MEDS: ENOXAPARIN SODIUM 40 MG/0.4 ML SYRINGE SUBCUT SCH (08:06)
[2019-06-28 08:13] LABS: CALCIUM 8.7 mg/dL (8.4-11.0); CHLORIDE 99 mmol/L (98-107); CREATININE 0.41 mg/dL (0.55-1.30); GLUCOSE 96 mg/dL (70-99); POTASSIUM 4.6 mmol/L (3.5-5.1); SODIUM SERUM 141 mmol/L (136-145); UREA NITROGEN, BLOOD 11 mg/dL (8-21)
[2019-06-28 08:15] LABS: BASOPHILS % (AUTO) 0.2 % (0.0-2.0); EOSINOPHILS % (AUTO) 0.5 % (0.0-4.0); HEMATOCRIT 30.9 % (36-48); HEMOGLOBIN 9.5 g/dL (12.0-16.0); LYMPHOCYTES # (AUTO) 0.5 K/uL (1.0-5.5); LYMPHOCYTES % (AUTO) 17.8 % (20.5-51.5); MEAN CORPUSCULAR HEMOGLOBIN 26 pg (27-31); MEAN CORPUSCULAR HGB CONC 31 % (32-36); MEAN CORPUSCULAR VOLUME 85 fL (79.0-98.0); MONOCYTES # (AUTO) 0.3 K/uL (0.0-1.0); MONOCYTES % (AUTO) 9.5 % (1.7-9.3); NEUTROPHILS # (AUTO) 2.2 K/uL (1.8-7.7); PLATELET COUNT (AUTO) 267 K/uL (130-430); RED BLOOD CELL COUNT(AUTO) 3.66 MIL/uL (4.2-6.2); RED CELL DISTRIBUTION WIDTH 13.7 % (9.0-15.0)
[2019-06-28 08:28] LABS: GFR AFRICAN AMERICAN 197 mL/min (>90)
--- NOTE | 2019-06-28 08:30 | NUR ---
CRITICAL LAB/DR. CHANG SPOKE W/ VIA PHONE, INFORMED MD OF CO2 43, PT HAS BEEN VOMITING X3 AND DRY HEAVING WITH NO RELIEF FROM REGLAN AND ATIVAN. EDUCATED PT ON TAKING SLOW DEEP BREATHS IN AND OUT, PT DEMONSTRATED TEACH BACK. INFORMED MD THAT PT REFUSED BREATHING TREATMENT DUE TO MAKING HER FEEL MORE ANXIOUS. NEW ORDERS RECEIVED BY MD, VERIFIED WITH READ BACK.
[2019-06-28 08:32] LABS: ANION GAP < 3 (5-15)
[2019-06-28] MEDS ORDERED: LEVALBUTEROL HCL 0.63 MG/3 ML VIAL.NEB INH PRN (09:15)
--- NOTE | 2019-06-28 10:14 | NUR ---
DR. AGUSTINA BEYER AT BEDSIDE EXAMINING PT. TO CONTINUE CURRENT PLAN OF CARE.
--- NOTE | 2019-06-28 10:33 | NUR ---
RN ROUNDS PT IS SITTING IN BEDSIDE COMMODE. PT IS STILL DRY HEAVING BUT WITH NO EMESIS. FAMILY AT BEDSIDE. PT IS MORE CALM. WILL CONTINUE TO MONITOR.
[2019-06-28 11:29] VITALS: BP_SYST 138
--- NOTE | 2019-06-28 12:00 | NUR ---
RN ROUNDS PT RESTING IN BED, NO ACUTE DISTRESS NOTED, BREATHING EVEN AND UNLABORED. FAMILY AT BEDSIDE.
[2019-06-28] MEDS: 0.45% NACL 1,000 ML IV SCH (13:24)
[2019-06-28] MEDS ORDERED: MILK OF MAGNESIA 30 ML UDC PO PRN (13:45)
--- NOTE | 2019-06-28 13:45 | NUR ---
DR. CHERY/RN ROUNDS MD AT BEDSIDE EXAMINING PT. PT SITTING AT EDGE OF BED, ON 3L NC. INFORMED MD THAT PT HAD EPISODE OF VOMITING 4X IN THE MORNING, MAINLY FROM PHLEGM. MD AWARE OF CRITICAL LAB AND ORDERS FROM DR. CHANG TO START PT ON IVF. NEW ORDERS RECEIVED TO GIVE MILK OF MAGNESIA PRN, VERIFIED WITH READ BACK.
[2019-06-28] MEDS ORDERED: FAMOTIDINE PF 20 MG/2 ML VIAL IVP ONE (14:00)
[2019-06-28] MEDS: methylPREDNISolone SOD SUCC 40 MG/ML VIAL IVP ONE ×2 (14:00→14:27)
--- NOTE | 2019-06-28 14:30 | NUR ---
PATIENT REFUSED MED EDUCATED PT ON USES AND SIDE EFFECTS OF SOLU-MEDROL IVP. PT VERBALIZED UNDERSTANDING. PT REFUSING MEDICATION. STATES IT MAKES HER FEEL SICK AND ANXIOUS.
[2019-06-28] MEDS: LEVALBUTEROL HCL 0.63 MG/3 ML VIAL.NEB INH SCH ×2 (15:00→20:19)
[2019-06-28 15:18] VITALS: BP_SYST 145
--- NOTE | 2019-06-28 15:54 | NUR ---
RN ROUNDS PT ON BSC, ATTEMPTING TO HAVE A BOWEL MOVEMENT. PT COMPLAINING THAT SHE IS HAVING A HARD TIME HAVING A BOWEL MOVEMENT. EDUCATED PT ON USES AND SIDE EFFECTS OF MILK OF MAGNESIUM, PT VERBALIZED UNDERSTANDING. PRN MILK OF MAGNESIUM ADMINISTERED. WILL CONTINUE TO MONITOR.
--- NOTE | 2019-06-28 16:42 | NUR ---
CONSULTATION PAGED/CALLED Reason for Consultation: [] PNA Person Who was Notified: [] NILTON Consulting Physician: [] DR. Sabra TREJO Thread Laster Specialty: [] ID Ordering Physician: [] DR Reji CHERY
[2019-06-28] MEDS: IPRATROPIUM BROM 0.5 MG/2.5 ML VIAL.NEB (ATROVENT) INH PRN (17:24)
--- NOTE | 2019-06-28 17:55 | NUR ---
DR. TREJO SPOKE WITH MD VIA PHONE, INFORMED MD PT CAME IN FOR PNA, WBC 6.1, SPUTUM GRAM STAIN POSITIVE FOR BACILLI AND COCCI, PT IS CURRENTLY ON LEVAQUIN Q24 AND IS ALLERGIC TO PCN, AND CEPHALEXIN. NEW ORDERS GIVEN TO START PO ANTIBIOTICS, VERIFIED WITH READ BACK.
--- NOTE | 2019-06-28 18:35 | NUR ---
CLOSING NOTE PT AWAKE, STATES SHE DOES NOT FEEL WELL. BP 150/62, HR 84, TEMP 97.4, O2 96% ON 3L NC. REPOSITIONED PT, GAVE PARTIAL BED BATH WITH RAGHU ELLIOTT, CHANGED PT GOWN AND LINEN. IVF INFUSING WELL. INFORMED PT THAT RESPIRATORY WILL BE COMING TO GIVE HER SCHEDULED TREATMENT AT 7PM. PT VERBALIZED UNDERSTANDING. CALL LIGHT WITHIN REACH, BED IN LOW AND LOCKED POSITION WITH BED ALARM ON. WILL CONTINUE TO MONITOR UNTIL PT CARE IS ENDORSED TO SCIENTIFIC WRITER RN.
[2019-06-28 18:37] VITALS: BP_SYST 150
--- NOTE | 2019-06-28 19:25 | NUR ---
CHANGE OF SHIFT; pt. sleeping when received. RT at bedside, was called by RN day shift, prn not due yet, will come back later. pt. daughter at bedside, questions answered by nurse Prado. no acute distress. will reassess later, side rails up, call light at bedside.
[2019-06-28 20:00] VITALS: BP_SYST 140
--- NOTE | 2019-06-28 20:00 | NUR ---
NOTES: pt. called and assisted to BSC, had bowel movement and voided at the same time. IVF continuous with 1/2 NS 2 60 cc/hr. via rt. arm. pt. daughter just left since she was sleeping. O2 @3l/nc continuous. still with occ. bouts of productive cough. on surveillance system monitor and shows sinus rhythm. noted both arthritic hands. on fall risk precautions. call light within reach. denies any discomfort at this time.
[2019-06-28] MEDS: LEVOFLOXACIN 250 MG/D5W 50 ML IV SCH (20:20)
[2019-06-28] MEDS: DOXYCYCLINE HYCLATE 100 MG CAPSULE PO SCH (20:21)
[2019-06-28] MEDS: FAMOTIDINE PF 20 MG/2 ML VIAL IVP SCH (20:27)
--- NOTE | 2019-06-28 21:00 | NUR ---
NOTES: crushed medications given after breathing treatment. back to bed. repositioned self for comfort. call light within reach.
--- NOTE | 2019-06-28 22:00 | NUR ---
NOTES: pt. called to help to use BSC, had another BM, SEAFOOD TECHNOLOGY SPECIALIST assisted her. pt. granddaughter at bedside. pt. resting when checked.
--- NOTE | 2019-06-29 00:15 | NUR ---
NOTES: pt. dozing on and off. pt. granddaughter at bedside. no complaints so far. been using BSC with small amts. of stool.
[2019-06-29 00:17] VITALS: BP_SYST 140
[2019-06-29] MEDS: METOCLOPRAMIDE HCL 10 MG/2 ML VIAL IVP PRN (02:04)
[2019-06-29] MEDS: ACETAMINOPHEN 325 MG TABLET PO PRN (02:09)
--- NOTE | 2019-06-29 02:10 | NUR ---
NOTES: pt. woke up, not feeling good, c/o headache and nausea, agreed to take tylenol, given and IV Reglan. assisted to BSC.
--- NOTE | 2019-06-29 02:30 | NUR ---
NOTES: pt. still awake, eating and sitting at the edge of the bed. pt. verbalizing about her condition and what is happening to her family , pt. reassured. pt. needs attended. call light within reach.
[2019-06-29] MEDS: LORazepam 1 MG TABLET PO PRN ×3 (03:14→20:55)
--- NOTE | 2019-06-29 03:15 | NUR ---
NOTES: pt. called and getting very anxious, Ativan po given per pt. request.
[2019-06-29] MEDS: IPRATROPIUM BROM 0.5 MG/2.5 ML VIAL.NEB (ATROVENT) INH PRN (04:26)
--- NOTE | 2019-06-29 04:28 | NUR ---
NOTES: pt. still c/o headache, called and sttod up and wants to sit in the recliner. RT here for breathing treatment, still gets wheezy on exertion. pt. needs attended.
--- NOTE | 2019-06-29 05:10 | NUR ---
NOTES: pt. back to bed with assistance. repositioned self for comfort.
[2019-06-29] MEDS: 0.45% NACL 1,000 ML IV SCH ×2 (06:05→21:22)
--- NOTE | 2019-06-29 06:48 | NUR ---
CLOSING NOTES; pt. been dozing on and off, gets anxious easily. IVF patent at same rate @ 60 cc/hr. continuous O@ @ 3l/nc, still bouts of productive cough, needs attended. for further care and assistance. pt. did not sleep and rest all night, been up to BSC. call light within reach. will endorse to day shift.
--- NOTE | 2019-06-29 07:30 | NUR ---
AM rounds: Patient is oriented x4. With productive cough, phlegm is thick green.Received using the commode, dirty pads on the floor. Sgortness of breath on exertion, patient is on O2 at 2li/min via nasal cannula. Able to transfer from bed to commode. Call light within reach.
[2019-06-29] MEDS: BUDESONIDE 0.5 MG/2 ML AMPUL.NEB INH SCH ×2 (07:53→20:07)
[2019-06-29] MEDS: LEVALBUTEROL HCL 0.63 MG/3 ML VIAL.NEB INH SCH ×3 (07:53→20:07)
[2019-06-29 08:08] LABS: BASOPHILS % (AUTO) 0.4 % (0.0-2.0); EOSINOPHILS # (AUTO) 0.1 K/uL (0.0-0.4); EOSINOPHILS % (AUTO) 3.6 % (0.0-4.0); HEMATOCRIT 34.2 % (36-48); HEMOGLOBIN 10.7 g/dL (12.0-16.0); LYMPHOCYTES # (AUTO) 0.6 K/uL (1.0-5.5); LYMPHOCYTES % (AUTO) 14.3 % (20.5-51.5); MEAN CORPUSCULAR HEMOGLOBIN 26 pg (27-31); MEAN CORPUSCULAR HGB CONC 31 % (32-36); MEAN CORPUSCULAR VOLUME 84 fL (79.0-98.0); MONOCYTES # (AUTO) 0.3 K/uL (0.0-1.0); MONOCYTES % (AUTO) 7.2 % (1.7-9.3); NEUTROPHILS % (AUTO) 74.5 % (40.0-70.0); PLATELET COUNT (AUTO) 300 K/uL (130-430); RED BLOOD CELL COUNT(AUTO) 4.08 MIL/uL (4.2-6.2); RED CELL DISTRIBUTION WIDTH 13.5 % (9.0-15.0)
[2019-06-29 08:23] LABS: CALCIUM 8.8 mg/dL (8.4-11.0); CREATININE 0.32 mg/dL (0.55-1.30); POTASSIUM 4.1 mmol/L (3.5-5.1); TOTAL BILIRUBIN 0.4 mg/dL (0.0-1.0)
[2019-06-29 08:35] VITALS: BP_SYST 143
[2019-06-29] MEDS: ASPIRIN 81 MG TAB.CHEW PO SCH (08:41)
[2019-06-29] MEDS: DOXYCYCLINE HYCLATE 100 MG CAPSULE PO SCH (08:41)
[2019-06-29] MEDS: FAMOTIDINE PF 20 MG/2 ML VIAL IVP SCH ×2 (08:41→20:54)
[2019-06-29] MEDS: CARVEDILOL 12.5 MG TABLET (COREG) PO SCH ×2 (08:42→20:55)
[2019-06-29] MEDS: IBUPROFEN 400 MG TABLET PO SCH ×2 (08:42→18:00)
[2019-06-29] MEDS: DOCUSATE SODIUM 100 MG CAPSULE PO SCH ×2 (08:42→20:54)
[2019-06-29] MEDS: ENOXAPARIN SODIUM 40 MG/0.4 ML SYRINGE SUBCUT SCH (08:43)
[2019-06-29] MEDS ORDERED: PREDNISONE 10 MG TABLET PO ONE (11:00)
[2019-06-29] MEDS: DOXYCYCLINE HYCLATE 100 MG in D5W 100 ML IV SCH ×2 (11:15→22:02)
--- NOTE | 2019-06-29 11:35 | NUR ---
Vibramycin: Medication route is changed from PO to IV by Dr. Alva. Okayed to start dose at 2100 since PO dose was already given this morning.
[2019-06-29 11:41] VITALS: BP_SYST 146
[2019-06-29 15:34] VITALS: BP_SYST 162
--- NOTE | 2019-06-29 18:20 | NUR ---
End of shift: Needs attended. Family at bedside. No change in assessment.
--- NOTE | 2019-06-29 19:45 | NUR ---
A/A/O X4.FAMILY @ THE BS.DENIES ANY DISCOMFORT @ THIS TIME.DENIES SOB.TELE SHOWED SR.IVF / NS @ 60 ML/HR INFUSING WELL. PER PT COUGHING PRODUCTIVELY WITH LIGHT GREENISH SECRETION.INSTRUCTED TO USE CALL LIGHT NEEDED;WITHIN REACH.
[2019-06-29] MEDS: LEVOFLOXACIN 250 MG/D5W 50 ML IV SCH (20:53)
--- NOTE | 2019-06-29 20:55 | NUR ---
LATE ENTRY. ACCIDENTALLY PRESS 1 MG ATIVAN FROM THE PYXIS BUT ONLY 0.5 MG PO ADM;CONY FONTANEZ RN MADE AWARE.
--- NOTE | 2019-06-29 22:00 | NUR ---
RESTING COMFORTABLY.FAMILY @ THE BS.
[2019-06-30] VITALS: BP_SYST 139
--- NOTE | 2019-06-30 | NUR ---
AFEBRILE.BP 139/92.RESTING COMFORTABLY.
[2019-06-30] MEDS: ONDANSETRON HCL 4 MG/2 ML VIAL IVP PRN ×2 (01:35→07:40)
--- NOTE | 2019-06-30 01:35 | NUR ---
C/O NAUSEA & VOMITING.ZOFRAN IV ADM.
--- NOTE | 2019-06-30 02:05 | NUR ---
PER PT NAUSEA WITH RELIEF POST ZOFRAN.
[2019-06-30] MEDS: MORPHINE 2 MG/ML INJ. SYRINGE IVP PRN (03:50)
--- NOTE | 2019-06-30 03:50 | NUR ---
PER PT WOKE UP WITH SEVERE H/A.TYLENOL PO OFFERED BUT REFUSED STATED IT WON'T WORK. MORPHINE 2 MG IV ADM.
--- NOTE | 2019-06-30 04:20 | NUR ---
FOUND RESTING QUIETLY ON HIGH WYNNE POSITION POST MORPHINE IV.
[2019-06-30] MEDS: METOCLOPRAMIDE HCL 10 MG/2 ML VIAL IVP PRN (05:46)
--- NOTE | 2019-06-30 05:46 | NUR ---
REGLAN IV ADM FOR NAUSEA.
--- NOTE | 2019-06-30 06:16 | NUR ---
PER PT NAUSEA WITH RELIEF POST REGLAN.
--- NOTE | 2019-06-30 06:50 | NUR ---
ENDORSED IN NO ACUTE DISTRESS.FAMILY @ THE BS.
[2019-06-30] MEDS: BUDESONIDE 0.5 MG/2 ML AMPUL.NEB INH SCH ×2 (07:00→20:11)
[2019-06-30 07:40] VITALS: BP_SYST 124
--- NOTE | 2019-06-30 07:40 | NUR ---
AM ROUNDS: Patient is awake, oriented. seated on the edge of the bed. Medicated with Zofran for nausea. Family at the bedside. IV fluids of Normal saline 100 cc/hr infusing on the right forearm gauge 22. Safety precautions, call light within reach.
[2019-06-30] MEDS: DOXYCYCLINE HYCLATE 100 MG in D5W 100 ML IV SCH (08:08)
[2019-06-30] MEDS: FAMOTIDINE PF 20 MG/2 ML VIAL IVP SCH ×2 (08:08→21:03)
[2019-06-30 08:34] LABS: CREATININE 0.43 mg/dL (0.55-1.30)
[2019-06-30] MEDS: LEVALBUTEROL HCL 0.63 MG/3 ML VIAL.NEB INH SCH ×3 (09:00→20:32)
[2019-06-30] MEDS: DOCUSATE SODIUM 100 MG CAPSULE PO SCH ×2 (09:00→21:04)
[2019-06-30] MEDS: IBUPROFEN 400 MG TABLET PO SCH (09:13)
[2019-06-30] MEDS: LORazepam 1 MG TABLET PO PRN ×2 (09:18→21:06)
[2019-06-30] MEDS: ASPIRIN 81 MG TAB.CHEW PO SCH (09:19)
[2019-06-30] MEDS: PREDNISONE 10 MG TABLET PO SCH (09:19)
[2019-06-30] MEDS: CARVEDILOL 12.5 MG TABLET (COREG) PO SCH ×2 (09:20→21:05)
[2019-06-30] MEDS: ENOXAPARIN SODIUM 40 MG/0.4 ML SYRINGE SUBCUT SCH (09:20)
--- NOTE | 2019-06-30 10:00 | NUR ---
Rounds: Patient is asleep. Medicated with ativan at 0918 for anxiety. Family in the room.
[2019-06-30 11:52] VITALS: BP_SYST 135
[2019-06-30] MEDS: IBUPROFEN 400 MG TABLET PO PRN ×2 (14:43→18:59)
--- NOTE | 2019-06-30 14:50 | NUR ---
Nutrition F/U RD reviewed pt's current EMR record including diet Hx, physician notes, nursing notes, pertinent labs/meds/procedures, care trends, and care activity. Admission Dx: Pneumonia PMH: HTN per physician notes Current Diet Order/Nutrition Support: Cardiac x6 days Subjective Info: Pt seen sitting in bedside chair w/ lunch tray atop bedside table. Pt reported that she has N/V today -- 2 episodes of emesis. Pt verified consistently poor appetite -- indicative of negligible PO intake records per EMR. RD offered ONS -- pt was agreeable to trying both Ensure Enlive and Ensure Clear to assess for flavor preference/evaluate for triggers for continued N/V. RD encouraged pt to try to increase PO intakes for adequate nutrition when feeling better to improve nutritional status. Usual Diet At Home Regular, but generally avoids salt Skin Integrity Comment: Uriel scale: 19; no skin issues noted per EMR Current % PO 25% average x2 meals Estimated Energy Expenditure (kcals/day) 4758-1440 kcal/day (MSJ x 1-1.2 CBW for maintenance) Estimated Protein Required (g/day) 58-70 gm/day (1-1.2 gm.kg Adj IBW for geriatric maintenance) Estimated Fluid Required (l/day) 1.3-1.5 L/day (1 ml/kcal/day for maintenance) Problem/Etiology/Signs/Symptoms Inadequate nutritional intakes related to complicated GI function as evidenced by nausea. *ongoing Expected Outcomes/Goals - Monitor appetite and PO intakes w/ goal of pt meeting at least 75% of estimated nutritional needs, labs trending WNL, normal GI function, and skin integrity/wt maintenance Dietitian Recommendations * Recommend cardiac diet w/ Ensure Enlive BID and Ensure Clear BID (ONS provides 1180 kcal/day, 56 gm protein/day) * Encourage increase PO intakes Follow Up High Risk: F/U in 2-3 days
[2019-06-30] MEDS: 0.45% NACL 1,000 ML IV SCH (14:56)
--- NOTE | 2019-06-30 14:57 | NUR ---
Dietitian Recommendations * Recommend cardiac diet w/ Ensure Enlive BID and Ensure Clear BID (ONS provides 1180 kcal/day, 56 gm protein/day) * Encourage increase PO intakes LP, RD Please refer to Nutrition F/U for details.
[2019-06-30 15:05] VITALS: BP_SYST 121
--- NOTE | 2019-06-30 15:15 | NUR ---
IV start: Started gauge 22 on the right hand. Blood return noted, secured with tegaderm and tape. OLD IV removed, no bleeding noted.
[2019-06-30] MEDS ORDERED: FLUCONAZOLE 200 mg/ NS 100 ML IV SCH (16:30)
--- NOTE | 2019-06-30 18:51 | NUR ---
End of shift: Needs attended. No change in assessment.
--- NOTE | 2019-06-30 20:00 | NUR ---
A/A/O X4. DENIES ANY DISCOMFORT @ THIS TIME.FAMILY @ THE BS.NOTED WITH OCCASIONAL PRODUCTIVE COUGH PER PT WITH CLEAR SECRETIONS. IVF 1/2 NS INFUSING WELL @ 60 ML/HR INFUSING WELL.
--- NOTE | 2019-06-30 21:00 | NUR ---
CLAIMED SO ANXIOUS,STEPHANY KESSLER.
[2019-06-30] MEDS: LEVOFLOXACIN 250 MG/D5W 50 ML IV SCH (21:03)
--- NOTE | 2019-06-30 22:00 | NUR ---
PER PT FEEL SO MUCH BETTER POST ATIVAN PO.
--- NOTE | 2019-07-01 | NUR ---
V/S STABLE. AFEBRILE.TELE SHOWED SR.
[2019-07-01 00:49] VITALS: BP_SYST 98
--- NOTE | 2019-07-01 02:00 | NUR ---
C/O GEN ACHING PAIN SCALE 7/10 & REQUESTED HER MOTRIN PO. WILL CON'T TO MONITOR FOR PAIN.
[2019-07-01] MEDS: IBUPROFEN 400 MG TABLET PO PRN ×3 (02:02→12:48)
--- NOTE | 2019-07-01 03:00 | NUR ---
RESTING COMFORTABLY POST MOTRIN.FAMILY @ THE BS.
--- NOTE | 2019-07-01 04:00 | NUR ---
ASLEEP.NO ACUTE DISTRESS.TELE SHOWED SR.
--- NOTE | 2019-07-01 06:00 | NUR ---
RESTING COMFORTABLY IN NO ACUTE DISTRESS.FAMILY @ THE BS.
--- NOTE | 2019-07-01 07:04 | NUR ---
ENDORSED A/A/ OX4.NO ACUTE DISTRESS.FAMILY @ THE BS.SAFETY MAINTAINED.
[2019-07-01] MEDS: BUDESONIDE 0.5 MG/2 ML AMPUL.NEB INH SCH (07:20)
--- NOTE | 2019-07-01 07:50 | NUR ---
Received report on pt. Pt states no distress or pain at this time. IV site intact, patent, no infiltration noted.
[2019-07-01 08:00] VITALS: BP_SYST 117
[2019-07-01] MEDS: LEVALBUTEROL HCL 0.63 MG/3 ML VIAL.NEB INH SCH (08:43)
[2019-07-01] MEDS: DOCUSATE SODIUM 100 MG CAPSULE PO SCH (09:00)
[2019-07-01] MEDS: FAMOTIDINE PF 20 MG/2 ML VIAL IVP SCH (09:06)
[2019-07-01] MEDS: ONDANSETRON HCL 4 MG/2 ML VIAL IVP PRN (09:07)
[2019-07-01] MEDS: PREDNISONE 10 MG TABLET PO SCH (09:07)
[2019-07-01] MEDS: ASPIRIN 81 MG TAB.CHEW PO SCH (09:08)
[2019-07-01] MEDS: CARVEDILOL 12.5 MG TABLET (COREG) PO SCH (09:08)
[2019-07-01] MEDS: ENOXAPARIN SODIUM 40 MG/0.4 ML SYRINGE SUBCUT SCH (09:09)
[2019-07-01] MEDS: 0.45% NACL 1,000 ML IV SCH (09:14)
--- NOTE | 2019-07-01 10:43 | NUR ---
DC Planning: updated and requested dr. Catalan for the dcp order: the stated he will reeval to dc pt to home. CM will f/u. Addendum: 07/01/19 at 1357 by Rebeka Guerra RN s/w pt's spouse/Chris regarding DC home with meds and nebulizer prescription. Chris will fill prescription and berry picker machine operator the nebulizer at her pharmacy. Chris requested a healthcare administration internship to help with adl's. I offered the apartment house manager agency and info which Chris does not want. He stated he will arrange with his own personal apartment house manager to take additional work time to help the pt. MARINE goes over the discharge process with Chris and advised him to call back if has any questions. -- SHASHA Juan made aware.
--- NOTE | 2019-07-01 11:00 | NUR ---
Pt ambulate with RN supervision to 15-[address] with continuous O2, took stops as necessary. Steady gait. O2 sat 95% with O2 2L via NC. Pt tolerated well.
[2019-07-01 11:22] VITALS: BP_SYST 93
--- NOTE | 2019-07-01 11:30 | NUR ---
Dr. Catalan notified regarding pt's ability to tolerate walking. States clear to discharge home when clear with Dr. Cobb. New orders given.
[2019-07-01] MEDS ORDERED: DIF100 PO (11:31)
[2019-07-01] MEDS ORDERED: PRED10TA PO (11:32)
[2019-07-01] MEDS ORDERED: LEVO750T45 PO (11:34)
[2019-07-01] MEDS ORDERED: ALBU2.5V7 INH (11:39)
[2019-07-01] MEDS ORDERED: NEBULIZER MACHINE (11:44)
[2019-07-01 12:57] VITALS: BP_SYST 110
--- NOTE | 2019-07-01 13:15 | NUR ---
D/C Patient Patient given medication reconciliation form and D/C instructions. Exit Care provided. Patient verbalized understanding. MD discussed with patient the results and treatment provided. Ambulatory with steady gait for discharge to home. Patient in stable condition, ID band removed. IV catheter removed, intact and dressing applied, no active bleeding. Rx of flucanazole, prednisone, levaquin, albuterol, and nebulizer given. Patient educated on pain management. All belongings sent with patient.
== END 2019-07-01 13:15 | disposition home or self-care (01) | DRG 871 ==
LOC: SED 17:47 → STU 20:14 → OBSVTOIN 06-24 09:28
PROVIDERS: ADMIT Internal Medicine Hospice and Palliative Medicine; ATTEND Internal Medicine Hospice and Palliative Medicine
DX: A41.9 Sepsis, unspecified organism (principal); J18.9 Pneumonia, unspecified organism; J96.20 Acute and chronic respiratory failure, unspecified whether with hypoxia or hypercapnia; J44.0 Chronic obstructive pulmonary disease with (acute) lower respiratory infection; M05.10 Rheumatoid lung disease with rheumatoid arthritis of unspecified site; F41.9 Anxiety disorder, unspecified; J84.89 Other specified interstitial pulmonary diseases; R07.89 Other chest pain; I11.0 Hypertensive heart disease with heart failure; I50.9 Heart failure, unspecified; Z82.49 Family history of ischemic heart disease and other diseases of the circulatory system; Z87.891 Personal history of nicotine dependence; Z88.0 Allergy status to penicillin; Z88.1 Allergy status to other antibiotic agents; Z99.81 Dependence on supplemental oxygen; Z79.899 Other long term (current) drug therapy
CPT/HCPCS: 36415; 71045; 71275; 80048; 80053; 80061; 82550-TC; 83605; 83880; 84443-TC; 84484; 85025; 85610-TC; 85651-TC; 85730-TC; 86480; 86635; 86710; 87040-TC; 87070-TC; 87086; 87205-TC; 87305; 93005; 93306; 93970; 94640; 94760; 96365; 96366; 96367; 99285; G0378; J1030; J1450; J1650; J1956; J2060; J2270; J2405; J2543; J2765; J3370; J3490; J7050; J7060; J7512; J7613; J7614; J7620; J7626; Q0144; Q9967